=== PATIENT | female | born 1945 | race American Indian/Alaskan Native ===

== ENCOUNTER → 2017-08-31 | Day surgery (SDC) | payer MEDICARE, BC ==
[~2017-08-31] MED LIST: Midazolam 2 MG/2 ML VIAL ONE; Propofol 10 mg/ml Inj (20 ML) ONE
[2017-08-31 09:17] VITALS: BMI 24.0
--- NOTE | 2017-08-31 09:35 | CP.SDSHP ---
Same Day Surgery H & P - History Proposed Procedure: colonoscopy - Previous Medical/Surgical History Cardiac: Hypertension Endocrine/Metabolic: Diabetes Previous Surgical History: hysterectomy - Allergies Allergies: Allergies No Known Allergies Allergy (Verified 08/31/17 09:00) - Physical Exam Vital Signs: Vital Signs 08/31/17 09:18 Temperature 96 F L Pulse Rate 72 Respiratory 18 Rate Blood Pressure 129/61 O2 Sat by Pulse 97 Oximetry - Date & Time Date: 08/31/17 Time: 09:34 Short Stay Discharge - Short Stay Discharge Admitting Diagnosis/Reason for Visit: SCREENING Disposition: HOME/ ROUTINE
[2017-08-31 12:47] VITALS: TEMP 97
[2017-08-31 12:49] VITALS: PULSE 68; O2SAT 100
[2017-08-31 12:55] VITALS: BP 140/70; RESP 20
== END | disposition home or self-care (01) ==
LOC: C.ENDO 08:42
PROVIDERS: ATTEND Colon & Rectal Surgery
DX: K57.90 Diverticulosis of intestine, part unspecified, without perforation or abscess without bleeding (principal)
CPT/HCPCS: 45378; 82948; J2250; J2704